=== PATIENT | male | born 1965 | race Hispanic/Latino ===

== ENCOUNTER 2017-03-11 21:09 | Emergency (ER) | payer SELFPAY ==
[2017-03-11] MEDS ORDERED: OSELTAMIVIR PHOSPHATE 75 MG CAP ONE (21:32)
== END 2017-03-11 21:37 | disposition home or self-care (01) ==
LOC: EDH 21:09
DX: J10.1 Influenza due to other identified influenza virus with other respiratory manifestations (principal); R50.81 Fever presenting with conditions classified elsewhere; E11.9 Type 2 diabetes mellitus without complications; I10 Essential (primary) hypertension; Z72.0 Tobacco use

== ENCOUNTER → 2020-05-20 | Outpatient (CLI) | payer OTHER | END | disposition home or self-care (01) | LOC: OIH 08:22 | PROVIDERS: ATTEND Family Medicine | DX: M47.816 Spondylosis without myelopathy or radiculopathy, lumbar region (principal); M25.511 Pain in right shoulder | CPT/HCPCS: 72100; 73030 ==

== ENCOUNTER 2024-11-05 14:25 | Emergency (ER) | payer MEDICARE, OTHER ==
[~2024-11-05] VITALS: Ht 175.3 cm; Wt 84.8 kg
--- NOTE | 2024-11-05 14:57 | ERN ---
General Chief Complaint: Other Problems Stated Complaint: FEELS PRESSURE IN HIS HEAD AND FACE Time Seen by MD: 14:30 History of Present Illness Initial Comments This is 58-year-old male who presented to ED with complaints of chest tightness, pressure over his both eyes, back of head and neck, on and off fever. Patient says that yesterday he went to a clinic, after evaluating his labs they started rosuvastatin 20 mg, fenofibrate 145 mg, pregabalin. Patient states that he took all the 3 medication once yesterday night. This afternoon he felt chest tightness, shortness of breath. He was worried about his medication use and came to ED for further evaluation. Allergies: Coded Allergies: No Known Drug Allergies (Unverified Allergy, Unknown, 11/05/24) Past Medical History Past Medical History: Diabetes-Type II, High Cholesterol, Hypertension Past Surgical History: None Constitutional: (+) fever; (-) chills, (-) diaphoresis, (-) malaise, (-) weakness, (-) other documentation EENTM: (+) other documentation Respiratory: (+) short of breath; (-) cough, (-) orthopnea, (-) stridor, (-) wheezing, (-) other documentation Cardiovascular: (-) chest pain, (-) edema, (-) palpitations, (-) syncope, (-) dyspnea on exertion, (-) other documentation Gastrointestinal/Abdominal: (-) nausea, (-) vomiting, (-) diarrhea, (-) abdominal pain, (-) abdominal distention, (-) constipation, (-) rectal bleeding, (-) dark stool/melena, (-) other documentation Neuro: (+) headache Review of Systems: was completed Nurses Notes Reviewed: Yes Physical Exam General Appearance: (+) no apparent distress; (-) apparent distress, (-) mild distress, (-) moderate distress, (-) severe distress, (-) thin, (-) obese, (-) combative, (-) cachetic, (-) anxious, (-) other documentation Orientation: (+) alert, (+) oriented x 3; (-) disoriented, (-) other documentation Head/Face Trauma: No Respiratory: (+) chest non-tender, (+) lungs clear, (+) well ventilated; (-) decreased breath sounds, (-) retractions, (-) abnormal breath sound, (-) crackles, (-) plerual rub, (-) rales, (-) rhonchi, (-) stridor, (-) wheezing, (- ) other documentation Heart: (+) regular Results EKG/XRAY/US/CT/MRI EKG Comment 1965 DATE: 11/05/2024 TIME: 2:48 P.M. RATE 103 SINUS TACHYCARDIA STEMI: NO ND 153 QRSD 93 QT 319 QTcB 419 MDM MDM : This is a 58-year-old male who presented to ED with chest tightness, shortness of breath, pressure over his both eyes and back of neck. Patient says that he has started 3 new medications yesterday which are rosuvastatin 20 mg, fenofibrate 145 mg, pregabalin. He started having symptoms after taking the med ications. This afternoon he felt short of breath, chest tightness so he got anxious and came to ED for further evaluation. On arrival his vitals blood pressure 138/91, pulse 115, temperature 99 F. we ordered an EKG to rule out STEMI. EKG is negative for STEMI. I explained the patient regarding the adverse effects of all the medication he was started on. Patient says he is fee ling better now. We will discharge him home, recommended him to follow-up with his PCP in 3-5 days. ED Course Orders Procedure Category Date Status Time 12 Lead Ekg Tracing- EKG 11/05/24 Logged Technical 14:42 Vital Signs Date Time Temp Pulse Resp B/P (MAP) Pulse Ox O2 Delivery O2 Flow Rate FiO2 11/05/24 16:22 98.2 102 18 141/91 95 Room Air* 0 21 11/05/24 14:27 99.0 115 138/91 96 Room Air DX & DISP Disposition: Discharge Departure Impression: Primary Impression: Medication adverse effect Condition: Stable Additional Instructions: You likely had a medication adverse effect. Watch for dizziness, swelling or mood changes with pregabalin. For statins, report muscle pain, weakness or dark urine immediately. With fibrates, monitor for stomach pain or unusual tiredness. Please report to your doctor immediately whenever you find the above adverse effects. Please follow-up with your PCP in 2-3 days. Referrals: SELF,REFERRAL (PCP) ATTESTATION BY PHYSICIAN I have seen and examined the patient. I reviewed the documentation, medical decision making, and treatment plan as noted by the resident provider above. I agree with the findings and plan of care. ISAAK LUNA ADIL SHAH QUADRI MD Nov 05, 2024 14:57 ISAAK LUNA DO Nov 05, 2024 18:15
[2024-11-05 16:22] VITALS: BP 141/91; PULSE 102; RESP 18; TEMP 98.3; O2SAT 95
--- NOTE | 2024-11-05 19:32 | EKG ---
[facility] Test Date: 2024-11-05 Test Time: 14:48:20 Pat Name: ROXANA CALLAHAN Department: [facility] Room: Gender: M Follow Up Specialist: [id number] : 1965 Requested By: DONALD LEIGH Order Number: [id number] Reading MD: Jackie Norton Measurements Intervals [place] Rate: 103 P: 68 NC: 153 QRS: -40 QRSD: 93 T: 17 QT: 319 QTc: 419 Interpretive Statements Sinus tachycardia Inferior infarct, old No previous ECG available for comparison Electronically Signed On 11-07-2024 08:36:51 CDT by Jackie Norton Please click the below link to view image of tracing.
== END 2024-11-05 16:39 | disposition home or self-care (01) ==
LOC: EDH 14:25
DX: R07.89 Other chest pain (principal); R50.9 Fever, unspecified; E11.9 Type 2 diabetes mellitus without complications; E78.00 Pure hypercholesterolemia, unspecified; I10 Essential (primary) hypertension; T46.6X5A Adverse effect of antihyperlipidemic and antiarteriosclerotic drugs, initial encounter; Y92.89 Other specified places as the place of occurrence of the external cause
CPT/HCPCS: 93005; 99283